=== PATIENT | male | born 1955 | race Caucasian/White ===

== ENCOUNTER 2018-03-02 09:36 | Outpatient (CLI) | payer MEDICAID | END 2018-03-02 09:37 | disposition short-term general hospital (02) | LOC: EMS 09:36 | PROVIDERS: ATTEND Surgery | DX: R06.00 Dyspnea, unspecified (principal); R05 Cough | CPT/HCPCS: A0425; A0427; A0999 ==

== ENCOUNTER 2018-05-31 09:26 | Outpatient (CLI) | payer MEDICAID | END 2018-05-31 09:27 | disposition short-term general hospital (02) | LOC: EMS 09:26 | PROVIDERS: ATTEND Surgery | DX: R10.9 Unspecified abdominal pain (principal) | CPT/HCPCS: A0425; A0429; A0999 ==

== ENCOUNTER 2018-06-24 10:39 | Outpatient (CLI) | payer MEDICAID ==
[2018-06-24 13:12] LABS: THYROID STIMULATING HORMONE 34.95 uIU/mL (0.34-5.60)
[2018-06-24 13:14] LABS: FREE T4 (FREE THYROXINE) 0.75 ng/dL (0.58-1.64)
== END 2018-06-24 23:59 ==
LOC: LAB.N 10:39
PROVIDERS: ATTEND Physician Assistant Medical
DX: E03.9 Hypothyroidism, unspecified (principal)
CPT/HCPCS: 36415; 84439; 84443

== ENCOUNTER 2018-10-11 11:08 | Outpatient (CLI) | payer MEDICAID ==
--- NOTE | 2018-10-12 15:59 | Ultrasound Report ---
Reason: FEEDING TUBE REMOVAL 1YR AGO, PAIN @ SITE W/ BLEEDING DISCHARGE Procedure Date: 10/11/2018 Accession Number: [id number] / [id number] Procedure: US - Abdomen Limited CPT Code: FULL RESULT: EXAM: ABDOMEN ULTRASOUND LIMITED EXAM DATE: 10/11/2018 12:19 PM. CLINICAL HISTORY: FEEDING TUBE REMOVAL 1 YEAR AGO, PAIN AT SITE WITH BLEEDING DISCHARGE. COMPARISON: 10/11/2018 12:17 PM. TECHNIQUE: Real-time scanning was performed with static images obtained. FINDINGS: Limited soft tissue ultrasound at the periumbilical gastric tube site was performed. This demonstrates a 0.4 x 0.3 cm defect in the abdominal wall with herniation of presumably omentum. IMPRESSION: Abdominal wall defect at the abdominal wall site of interest. RADIA
== END 2018-10-11 11:09 | disposition home or self-care (01) ==
LOC: DI 11:08
PROVIDERS: ATTEND Physician Assistant Medical
DX: K43.9 Ventral hernia without obstruction or gangrene (principal)
CPT/HCPCS: 76705

== ENCOUNTER 2018-11-03 08:00 | Outpatient (CLI) | payer MEDICAID ==
[2018-11-03 13:39] LABS: THYROID STIMULATING HORMONE 0.51 uIU/mL (0.34-5.60)
[2018-11-03 13:41] LABS: FREE T4 (FREE THYROXINE) 1.21 ng/dL (0.58-1.64)
== END 2018-11-03 23:59 | disposition home or self-care (01) ==
LOC: LAB.N 08:00
PROVIDERS: ATTEND Physician Assistant Medical
DX: E03.9 Hypothyroidism, unspecified (principal)
CPT/HCPCS: 36415; 84439; 84443

== ENCOUNTER 2018-12-20 13:30 | Outpatient (CLI) | payer MEDICAID ==
[2018-12-20 14:02] LABS: BASOPHILS # (AUTO) 0.1 10^3/uL (0.0-0.1); BASOPHILS % (AUTO) 1.2 %; EOSINOPHILS # (AUTO) 0.6 10^3/uL (0.0-0.7); EOSINOPHILS % (AUTO) 7.8 %; HGB - HEMOGLOBIN 13.1 g/dL (14.0-18.0); LYMPHOCYTES # (AUTO) 1.8 10^3/uL (1.5-3.5); LYMPHOCYTES % (AUTO) 22.3 %; MEAN CORPUSCULAR HEMOGLOBIN 27.6 pg (27.0-31.0); MEAN CORPUSCULAR VOLUME 86.3 fL (80.0-94.0); MEAN PLATELET VOLUME 9.9 fL (7.4-11.4); MONOCYTES # (AUTO) 0.9 10^3/uL (0.0-1.0); MONOCYTES % (AUTO) 11.1 %; NEUTROPHILS # (AUTO) 4.6 10^3/uL (1.5-6.6); NEUTROPHILS % (AUTO) 57.4 %; PLT - PLATELET COUNT 281 10^3/uL (130-450); RED BLOOD COUNT 4.75 10^6/uL (4.70-6.10); RED CELL DISTRIBUTION WIDTH 15.4 % (12.0-15.0)
[2018-12-20 14:09] LABS: CALCIUM 9.1 mg/dL (8.5-10.3)
== END 2018-12-20 13:31 | disposition home or self-care (01) ==
LOC: LAB 13:30
PROVIDERS: ATTEND Registered Nurse
DX: Z79.899 Other long term (current) drug therapy (principal)
CPT/HCPCS: 36415; 80048; 85025

== ENCOUNTER 2018-12-24 06:13 | Day surgery (SDC) | payer MEDICAID ==
[2018-12-24] MEDS ORDERED: CEFAZOLIN SODIUM IN 0.9 % NACL 2 GM/100 ML BAG IV ONE (06:49)
[2018-12-24] MEDS ORDERED: LACTATED RINGERS 1,000 ML IV ONE ×3 (07:00→10:03)
[2018-12-24] MEDS ORDERED: BUPIVACAINE 0.5% PF 10 ML VIAL ONE (07:07)
--- NOTE | 2018-12-24 07:26 | ANESTHESIA ---
Pre-Anesthesia VS, & Labs - Diagnosis Recurrent incisional hernia - Procedure Open incisional hernia repair Height 6 ft 1 in - NPO >8 hours Home Medications and Allergies Home Medications: Ambulatory Orders Albuterol Sulf [Ventolin Hfa Inhaler] 1 - 2 puffs INH Q4HR PRN 12/09/18 Amoxicillin/Potassium Clav [Amox-Clav 500-125 mg Tablet] 1 each PO BID 12/09/18 Ipratropium/Albuterol [Combivent Respimat] 2 puffs IH DAILY 12/09/18 Levothyroxine Sodium 175 mcg PO DAILY 12/09/18 Pregabalin [Lyrica] 50 mg PO TID 12/09/18 Sertraline HCl 50 mg PO DAILY 12/09/18 traMADol [Ultram] 50 mg PO BID 12/09/18 Albuterol Sulf [Ventolin Hfa Inhaler] 1 - 2 puffs INH Q4HR PRN 12/09/18 Amoxicillin/Potassium Clav [Amox-Clav 500-125 mg Tablet] 1 each PO BID 12/09/18 Ipratropium/Albuterol [Combivent Respimat] 2 puffs IH DAILY 12/09/18 Levothyroxine Sodium 175 mcg PO DAILY 12/09/18 Pregabalin [Lyrica] 50 mg PO TID 12/09/18 Sertraline HCl 50 mg PO DAILY 12/09/18 traMADol [Ultram] 50 mg PO BID 12/09/18 Allergies/Adverse Reactions: Allergies Allergy/AdvReac Type Severity Reaction Status Date / Time aspirin AdvReac stomach Verified 12/09/18 11:33 problems Anes History & Medical History - Anesthetic History Anesthesia Complications: reports: No previous complications Family history of Anesthesia Complications: Denies Family history of Malignant Hyperthermia: Denies - Medical History Cardiovascular: reports: Deep vein thrombosis, Murmur, Arrhythmia Pulmonary: reports: Asthma, Emphysema, Shortness of breath, Other Gastrointestinal: reports: GERD, Ulcers, Hepatitis Urinary: reports: None Neuro: reports: None, Head injury Musculoskeletal: reports: None Endocrine/Autoimmune: reports: HyPOthyroidism Blood Disorders: reports: None Skin: reports: Other Smoking Status: Heavy tobacco smoker Psychosocial: reports: No issues indicated - Surgical History General: EGD Cardiothoracic: Cardiac catheterization Neurologic: Other (C5-C6 fusion, limited mobility) Orthopedic: Spine surgery Exam General: Alert, Oriented x3, Cooperative Dental: Other (Edentulous) Mouth Opening: Greater than 4 Fingerbreadths Neck Mobility: Reduced Mallampati classification: III Thyromental Distance: 4-6 cm Respiratory: Decreased breath sounds, Rhonchi Cardiovascular: Other (Irregular) Neurological: Normal speech Mental/Cognitive Status: Alert/Oriented X3 Cognitive Status: Within normal limits Plan Anesthesia Type: General Consent for Procedure(s) Verified and Reviewed: Yes Code Status: Attempt Resuscitation ASA classification: 3-Severe systemic disease Is this case an emergency?: No
[2018-12-24] MEDS ORDERED: DEXAMETHASONE 4 MG/ML VIAL IVP ONE (07:30)
[2018-12-24] MEDS ORDERED: ONDANSETRON 4 MG/2 ML VIAL IVP ONE (07:30)
[2018-12-24] MEDS ORDERED: LIDOCAINE-MPF 2% 5 ML VIAL IM ONE (07:30)
[2018-12-24] MEDS ORDERED: PROPOFOL 200 MG/20 ML VIAL IVP ONE (07:30)
[2018-12-24] MEDS ORDERED: fentaNYL 250 MCG/5 ML VIAL IVP ONE (07:30)
[2018-12-24] MEDS ORDERED: SUGAMMADEX 200 MG/2 ML VIAL IVP ONE ×2 (07:30→08:59)
[2018-12-24] MEDS ORDERED: MIDAZOLAM 2 MG/2 ML VIAL IVP ONE (07:30)
[2018-12-24] MEDS ORDERED: ROCURONIUM 50 MG/5 ML VIAL IVP ONE (07:30)
[2018-12-24] MEDS ORDERED: BUPIVACAINE 0.5% PF 30 ML VIAL SUBQ ONE (08:25)
[2018-12-24] MEDS ORDERED: HYDROcod/ACETAM 5/325 MG TABLET PO PRN (08:56)
[2018-12-24] MEDS ORDERED: ONDANSETRON 4 MG/2 ML VIAL IVP PRN (08:56)
[2018-12-24] MEDS ORDERED: HYDROmorphone 0.5 MG/0.5 ML SYRINGE IVP PRN (08:56)
[2018-12-24] MEDS: HYDROmorphone 1 MG/ML CARPUJECT ONE ×6 (09:07→09:51)
--- NOTE | 2018-12-24 09:07 | OPERATIVE REPORT ---
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 - Other Other Information/Narrative: OPERATIVE DESCRIPTION/REPORT: After verbal and written informed consent was obtained detailing the risks of infection, bleeding requiring transfusion with its risks, nerve injury, and deat h, and after I met with the patient confirming the surgery and the site of the surgery, the patient was brought to the operative suite and placed supine on the operating table. Great care was taken to avoid pressure points to prevent pressure necrosis or nerve injury. Monitoring devices were applied along with TEDs and pneumatic compressive stockings (to prevent DVT). The patient received preoperative antibiotics for surgical prophylaxis. Herman Webster CRNA sedated and anesthetized the patient for the entire procedure. The patient was prepped and draped in the usual sterile manner. With the patient draped my initials were clearly visible. A "time in" then confirmed that the patient was identified with 3 identifiers (name, date and medical record number), the history and physical was in the chart, the signed consent confirming the procedure was in the chart, the patient was in the correct position, the aforementioned prophylactic measures were in place or given, we had the correct personnel and equipment to complete the procedure and that anesthesia, surgery and nursing were given an opportunity to express any concerns. With the agreement of everyone in the room, we proceeded with the operation. A transverse elliptical incision was made using a scalpel encompassing the gastrocolic fistula. Dissection down to the anterior fascia was completed using Bovie electrocautery. This dissection was then taken to the gastrocolic fistula defining the fascial defect as well as the extension of the stomach onto the skin. Once this was clear, a 2-0 Vicryl stitch was placed medially and laterally onto the stomach to hold this in place and the fistula was excised. The skin and fissure were then sent for pathologic evaluation. A small amount of omental fat that was coming through the incisional hernia was excised using Bovie electrocautery. The sutures medially and laterally helped to define the stomach opening and the gastrotomy was closed using interrupted 2-0 Vicryl sutures. The closed stomach wall was then allowed to drop back into the abdomen and the fascia was closed using interrupted 0 PDS sutures. Care was taken to bury the knots to the patient's thin abdominal wall. Meticulous hemostasis was obtained using Bovie electrocautery. The skin, subcutaneous tissues, and fascia were injected using half percent Marcaine. The skin incision was approximated with a running 4-0 Monocryl. The skin was further closed using Dermabond. At this point a time out was performed that confirmed that all the counts were correct, the procedure that was performed, the blood loss, the IV fluids administered, and the patients condition. Having tolerated the procedure well, the patient was subsequently extubated and taken to recovery room in good and stable condition. [employer] disclaimer: This document was created in part using voice recognition technology. Because of the inherent limitations of the system ([employer]'s [employer] Dictate user manual states that the licensee understands that speech recognition is a statistical process and that recognition errors are inherent in the process), occasional same sounding word substitutions and grammatical errors do occur and persist despite proofreading. Please read this document for context.
[2018-12-24] MEDS: fentaNYL 100 MCG/2 ML VIAL ONE ×2 (09:28→09:34)
[2018-12-24] MEDS ORDERED: LORazepam 2 MG/ML VIAL ONE (10:01)
[2018-12-24] MEDS ORDERED: HYDROcod/ACETAM 5/325 MG TABLET ONE (10:59)
[2018-12-24 11:27] VITALS: BP 166/83
== END 2018-12-24 06:14 | disposition home or self-care (01) ==
LOC: SDS 06:13
PROVIDERS: ATTEND Surgery
PROC: 0DQ60ZZ Repair Stomach, Open Approach (ICD-10-PCS; principal; 2018-12-24 07:30)
DX: K31.6 Fistula of stomach and duodenum (principal); F17.210 Nicotine dependence, cigarettes, uncomplicated; K43.2 Incisional hernia without obstruction or gangrene
CPT/HCPCS: 43880; A9270; J0690; J1170; J2060; J3010; J7120

== ENCOUNTER 2019-07-13 14:41 | Outpatient (CLI) | payer MEDICAID | END 2019-07-13 14:42 | disposition home or self-care (01) | LOC: DI 14:41 | PROVIDERS: ATTEND Physician Assistant Medical | DX: R01.1 Cardiac murmur, unspecified (principal) | CPT/HCPCS: 93306 ==

== ENCOUNTER 2019-08-17 14:22 | Outpatient (CLI) | payer MEDICAID ==
[2019-08-17 18:19] LABS: THYROID STIMULATING HORMONE 25.28 uIU/mL (0.34-5.60)
[2019-08-17 18:21] LABS: FREE T4 (FREE THYROXINE) 0.6 ng/dL (0.58-1.64)
== END 2019-08-17 23:59 | disposition home or self-care (01) ==
LOC: LAB.N 14:22
PROVIDERS: ATTEND Physician Assistant Medical
DX: E03.9 Hypothyroidism, unspecified (principal)
CPT/HCPCS: 36415; 84439; 84443

== ENCOUNTER 2019-12-03 19:41 | Outpatient (CLI) | payer MEDICAID | END 2019-12-03 19:42 | disposition short-term general hospital (02) | LOC: EMS 19:41 | PROVIDERS: ATTEND Surgery | DX: R06.02 Shortness of breath (principal); R05 Cough; R50.9 Fever, unspecified | CPT/HCPCS: A0425; A0427; A0999 ==

== ENCOUNTER 2020-01-03 20:56 | Emergency (ER) | payer MEDICAID ==
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
[2020-01-03] MEDS ORDERED: MORPHINE 2 MG/ML CARPUJECT IVP STA ×2 (21:28→22:51)
[2020-01-03] MEDS ORDERED: SODIUM CHLORIDE 0.9% 1,000 ML IV STA (21:28)
[2020-01-03 21:35] LABS: BASOPHILS # (AUTO) 0.2 10^3/uL (0.0-0.1); EOSINOPHILS # (AUTO) 0.3 10^3/uL (0.0-0.7); EOSINOPHILS % (AUTO) 1.7 %; HGB - HEMOGLOBIN 10.5 g/dL (14.0-18.0); MEAN CORPUSCULAR HEMOGLOBIN 24.9 pg (27.0-31.0); MEAN CORPUSCULAR HGB CONC 31.1 g/dL (32.0-36.0); MEAN CORPUSCULAR VOLUME 80.3 fL (80.0-94.0); MONOCYTES # (AUTO) 1.1 10^3/uL (0.0-1.0); MONOCYTES % (AUTO) 6.8 %; NEUTROPHILS # (AUTO) 13.5 10^3/uL (1.5-6.6); NEUTROPHILS % (AUTO) 82.8 %; PLT - PLATELET COUNT 588 10^3/uL (130-450); RED BLOOD COUNT 4.21 10^6/uL (4.70-6.10); RED CELL DISTRIBUTION WIDTH 15.9 % (12.0-15.0); WHITE BLOOD COUNT 16.3 x10^3/uL (4.8-10.8)
[2020-01-03 21:42] LABS: CALCIUM 8.9 mg/dL (8.5-10.3); CREATININE 1.3 mg/dL (0.6-1.2)
[2020-01-03] MEDS ORDERED: BACITRACIN ZINC OINT 1 PACKET TOP STA (23:33)
[2020-01-04 00:06] VITALS: BP 110/59
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
== END 2020-01-03 23:55 | disposition home or self-care (01) ==
LOC: ED 20:56
DX: T20.19XA Burn of first degree of multiple sites of head, face, and neck, initial encounter (principal); T31.0 Burns involving less than 10% of body surface; X04.XXXA Exposure to ignition of highly flammable material, initial encounter; F17.210 Nicotine dependence, cigarettes, uncomplicated; J43.9 Emphysema, unspecified; Z99.81 Dependence on supplemental oxygen; C34.90 Malignant neoplasm of unspecified part of unspecified bronchus or lung; C79.9 Secondary malignant neoplasm of unspecified site
CPT/HCPCS: 36415; 71046; 80048; 85025; 96361; 96374; 96376; 99283; 99285; A9270

== ENCOUNTER 2020-01-20 11:00 | Outpatient (CLI) | payer MEDICAID | END 2020-01-20 23:59 | disposition home or self-care (01) | LOC: LAB.R 11:00 | PROVIDERS: ATTEND Family Medicine | DX: Z20.828 Contact with and (suspected) exposure to other viral communicable diseases (principal) ==

== ENCOUNTER 2020-02-09 11:29 | Outpatient (CLI) | payer MEDICAID | END 2020-02-09 11:30 | disposition hospice, inpatient (51) | LOC: EMS 11:29 | PROVIDERS: ATTEND Surgery | DX: Z51.5 Encounter for palliative care (principal) | CPT/HCPCS: A0425; A0428 ==